=== PATIENT | male | born 2000 | race African-American/Black ===

== ENCOUNTER 2024-09-19 09:48 | Emergency (ER) | payer MEDICAID, SELFPAY ==
--- NOTE | 2024-09-19 09:59 | ED_ITS ---
HPI - General Adult General Chief complaint: Upper Respiratory Infection Stated complaint: sick Time Seen by Provider: 09/19/24 09:50 History of Present Illness HPI narrative: This is a 23-year-old male presenting ED with chief complaint of URI symptoms. Patient has been having cough congestion and nasal drainage. A close contact has mycoplasma he is worried about walking pneumonia. No fevers chills nausea vomiting diarrhea chest pain or difficulty breathing. Patient is here with his and son who are also seeking treatment. Related Data Allergies Allergy/AdvReac Type Severity Reaction Status Date / Time No Known Allergies Allergy Verified 09/19/24 10:06 Exam Narrative: APPEARANCE: No apparent distress. Head: atraumatic. EYES: EOMI, NOSE: Atraumatic NECK: Trachea midline RESPIRATORY: No increased rate of breathing , clear to auscultation CARDIOVASCULAR: RRR, ABDOMINAL: Non-distended MUSCULOSKELETAl: No obvious deformities NEURO: Alert. Moving 4/4 extremities SKIN:: Warm, dry. Normal color PSYCHIATRIC: Normal affect Course Vital Signs Vital signs: Vital Signs Temperature 98.1 F 09/19/24 10:00 Pulse Rate 86 09/19/24 10:00 Respiratory Rate 16 09/19/24 10:00 Blood Pressure 126/90 09/19/24 10:00 Pulse Oximetry 98 09/19/24 10:00 Oxygen Delivery Room Air 09/19/24 10:00 Temperature 98.1 F 09/19/24 10:00 Pulse Rate 86 09/19/24 10:00 Respiratory Rate 16 09/19/24 10:00 Blood Pressure 126/90 09/19/24 10:00 Pulse Oximetry 98 09/19/24 10:00 Oxygen Delivery Room Air 09/19/24 10:00 Medical Decision Making [facility] Narrative Medical decision making narrative: -Course: 23-year-old male presenting with URI symptoms. Vital signs stable. Very well-appearing with normal lung exam. Concerned about walking pneumonia due to a close contact. patient treated with azithromycin. Primary care follow-up. return precautions given. Vital Signs Vital Signs: Vital Signs Temperature 98.1 F 09/19/24 10:00 Pulse Rate 86 09/19/24 10:00 Respiratory Rate 16 09/19/24 10:00 Blood Pressure 126/90 09/19/24 10:00 Pulse Oximetry 98 09/19/24 10:00 Oxygen Delivery Room Air 09/19/24 10:00 Temperature 98.1 F 09/19/24 10:00 Pulse Rate 86 09/19/24 10:00 Respiratory Rate 16 09/19/24 10:00 Blood Pressure 126/90 09/19/24 10:00 Pulse Oximetry 98 09/19/24 10:00 Oxygen Delivery Room Air 09/19/24 10:00 Discharge Plan Discharge Clinical Impression: Upper respiratory infection Patient Disposition: Home, Self-Care Condition: Stable Instructions: Antibiotic Form, Pneumonia (ED) Additional Instructions: Please take the antibiotics as instructed. Please follow-up your primary care physician. Use Motrin and Tylenol for fevers and body aches. Use Sudafed or Mucinex for congestion. Prescriptions: New azithromycin 250 mg tablet See Rx Instructions .ROUTE .COMPLEX Qty: 6 0RF Rx Instructions: For 250 mg dose pack: take 500 mg today (day 1), then 250 mg for 4 days (days 2-5) guaifenesin [Mucinex] 1,200 mg tablet extended release 12hr 1,200 mg PO BID Qty: 14 0RF Follow-up/Referrals: UNKNOWN,DOCTOR [Primary Care Provider] -
[2024-09-19 10:00] VITALS: BP 126/90; PULSE 86; RESP 16; TEMP 36.7; O2SAT 98
[2024-09-19 10:43] VITALS: BP 133/85; PULSE 96; RESP 17; O2SAT 100
== END 2024-09-19 10:45 | disposition home or self-care (01) ==
LOC: ANHED 10:19
PROVIDERS: Emergency Provider Emergency Medicine
DX: J06.9 Acute upper respiratory infection, unspecified (principal)
CPT/HCPCS: 99283